=== PATIENT | male | born 1960 | race Caucasian/White ===

== ENCOUNTER 2017-12-22 16:56 | Observation (INO) ==
[2017-12-22] MEDS ORDERED: *HR* HYDROmorphone (PF) 1 MG/ML SYRINGE IM ONE (17:25)
[2017-12-22] MEDS ORDERED: Ondansetron ODT 4 MG TAB.RAPDIS SL ONE (17:26)
--- NOTE | 2017-12-22 18:04 | Emergency Department Note ---
Disposition Clinical Impression: Lumbar strain Qualifiers: Encounter type: initial encounter Qualified Code(s): S39.012A - Strain of muscle, fascia and tendon of lower back, initial encounter Disposition: Admitted As Inpatient Condition: Good Back Pain HPI - General Chief Complaint: ED Back Pain/Injury Stated Complaint: back pain Source: patient Mode of arrival: ambulatory Limitations: no limitations Nursing Notes Reviewed: Yes Vital Signs Reviewed: Yes - History of Present Illness HPI Narrative: has had back pain for the last 10 days or so. similar problems in the past but it's always gotten better in a few days. Has continued to be active in the week and a helf, but will lift or weed the garden and it flares back up again. Today lifted lawnmower into the trunk and push mowed a yard but the pain got much worse. complains of spasm in his back and is unable to bend or twist. No uirnary symptoms, no trauma other than lifting or straining. no falls or blows to the back. no leg pain or numbness or weakness, no difficulty with bowel or bladder control. No fever or IV drug use Pt Subjective Complaint: back pain Onset (ago): day(s) (10) Location: lumbar spine Pain Severity: severe Quality: dull, stabbing, other (feels like back "locks up") Radiation: none Improves with: immobilization Worsens with: movement Context: while lifting, turning/twisting - Related Data Home Medications Medication Instructions Recorded Confirmed Multivitamin-Min/Iron/FA/Vit K 12/22/17 [Multi-Day Plus Minerals Tablet] Saw/Vit E/Sod Annemarie/Lyc/Beta/Pyg 12/22/17 [Prostate Health Caplet] Previous Rx's Medication Instructions Recorded Cyclobenzaprine [Flexeril] 10 mg PO TID PRN #30 tablet 12/22/17 HYDROcodone/Acet 5/325 mg [[place] 1 tab PO Q4H PRN 3 Days #6 tab 12/22/17 5-325 mg] Naproxen [Naprosyn] 500 mg PO BID #20 tablet 12/22/17 Allergies Allergy/AdvReac Type Severity Reaction Status Date / Time No Known Allergies Allergy Verified 12/22/17 17:08 All systems ED: reviewed and negative except as stated. Past Medical History - Past Medical History Medical history: Reports: other Psychiatric history: Reports: no psych history - Social History Smoking Status: Current every day smoker Smokeless Tobacco Status: No Alcohol use: Reports: none Drug use: Reports: none Physical Exam - General Limitations: no limitations General appearance: alert, other (seems relatively comfortable at rest but severe pain with movement of his back) - Head Head exam: atraumatic, normocephalic - Eye Eye exam: Present: normal appearance - ENT ENT exam: normal exam, mucous membranes moist - Neck Neck exam: Present: normal inspection, full ROM - Chest Chest inspection: Present: normal inspection, symmetric chest wall rise - Respiratory Respiratory exam: Present: normal lung sounds bilaterally - Cardiovascular Cardiovascular exam: Present: regular rate, normal rhythm, normal heart sounds - Abdominal Exam Abdominal exam: Present: soft, Non-Tender, normal bowel sounds - Extremities Exam Extremities exam: Present: normal inspection, full ROM. Absent: pedal edema, joint swelling - Expanded Lower Extremity Exam Neurovascular/Tendon exam: Present: normal capillary refill. Absent: pulse deficit - Back Exam Back exam: Present: other (very tender to palpation over lumbar spine, no deformity or step off. Has palpable spasm with movement) - Neurological Exam Neurological exam: Present: alert, oriented X3, CN II-XII intact, reflexes normal (at knees and ankles bilaterally). Absent: motor sensory deficit - Psychiatric Psychiatric exam: Present: normal affect, normal mood - Skin Skin exam: Present: warm, dry, normal color Course - Reevaluation(s) Reevaluation #1: despite multiple doses of analgesics and valium, I was unalbe to control his pain enough that he could sit up and leave. I have discussed with Dr. Sands and he will be admitted to observation for pain control. there are no signs of radiculopathy or cauda equina syndrome Vital Signs Temperature 98.2 F 12/22/17 17:02 Pulse Rate 92 12/22/17 17:02 Respiratory Rate 18 12/22/17 17:02 Blood Pressure 164/74 12/22/17 17:02 O2 Sat by Pulse Oximetry 99 12/22/17 17:02 Temperature 98.0 F 12/22/17 23:20 Pulse Rate 74 12/22/17 23:20 Respiratory Rate 17 12/22/17 23:20 Blood Pressure 136/80 12/22/17 23:20 O2 Sat by Pulse Oximetry 95 12/22/17 23:20 Oxygen Delivery Oxygen Delivery Room Air Back Pain/Injury - Lab Data Result diagrams: 12/22/17 20:35 12/22/17 20:35 Lab Results 12/22/17 12/22/17 12/22/17 Range/Units 20:35 20:35 21:02 WBC 10.5 (4.3-11.1) K/mcL RBC 5.22 (4.19-5.50) M/mcL Hgb 16.2 (12.9-16.9) g/dL Hct 46.1 (37.5-50.1) % MCV 88.3 (83.0-100.0) fL MCH 31.0 (28.0-33.3) pg MCHC 35.1 (31.6-35.5) g/dL RDW 11.9 (11.5-14.5) % Plt Count 329 (140-400) K/mcL MPV 9.2 L (9.4-12.4) fL Immature Gran % 0.5 (0-4) % Seg Neutrophils % 76.4 % Lymphocytes % 14.4 % Monocytes % 7.8 % Eosinophils % 0.1 % Basophils % 0.8 % Neutrophils # 8.0 (1.6-8.9) K/mcL Lymphocytes # 1.5 (0.6-4.6) K/mcL Monocytes # 0.8 (0.0-1.3) K/mcL Eosinophils # 0.0 (0.0-0.6) K/mcL Basophils # 0.1 (0.0-0.2) K/mcL Sodium 136 (136-145) mEq/L Potassium 4.1 (3.5-5.1) mEq/L Chloride 101 (98-107) mEq/L Carbon Dioxide 24 (23-29) mEq/L BUN 16 (6-20) mg/dL Creatinine 0.99 (0.70-1.30) mg/dL Est GFR ( Amer) > 60 (> 60) Est GFR (Non-Af Amer) > 60 (> 60) BUN/Creatinine Ratio 16 (6-26) Glucose 114 H (70-105) mg/dL Calculated Osmolality 284 (280-300) Calcium 9.7 (8.6-10.3) mg/dL Total Bilirubin 0.5 (0.3-1.0) mg/dL Direct Bilirubin 0.1 (0.0-0.2) mg/dL Indirect Bilirubin 0.4 (0.0-1.2) mg/dL AST 31 (13-39) Units/L ALT 57 H (7-52) Units/L Alkaline Phosphatase 42 (34-104) Units/L Serum Total Protein 7.9 (6.4-8.9) g/dL Albumin 4.7 (3.5-5.7) g/dL Globulin 3.2 (2.4-3.5) g/dL Albumin/Globulin Ratio 1.5 (1.1-2.2) Amylase 54 (29-103) Units/L Lipase 18 (11-82) Units/L Urine Color Yellow (Yellow) Urine Clarity Clear (Clear) Urine pH 6.0 (5.0-8.0) pH Units Ur Specific [place] >= 1.030 H (1.010-1.025) Urine Protein 30 H (Neg-Trace) mg/dL Urine Glucose (UA) Normal (Normal) mg/dL Urine Ketones Negative (Negative) mg/dL Urine Blood Trace-intact H (Negative) Urine Nitrite Negative (Negative) Urine Bilirubin Negative (Negative) Urine Urobilinogen Normal (Normal) mg/dL Ur Leukocyte Esterase Trace H (Negative) Urine Microscopic RBC 0-3 (0-3) per hpf Urine Microscopic WBC 5-15 H (0-3) per hpf Ur Squamous Epith Cells Few (None-Few) per lpf Urine Bacteria Moderate H (None-Few) per hpf Urine Sperm Present Ur Culture Indicated? YES A (NO)
[2017-12-22] MEDS ORDERED: *HR* HYDROmorphone 2 MG/ML SYRINGE IM ONE (18:32)
[2017-12-22] MEDS ORDERED: diazePAM 5 MG TABLET PO ONE (19:15)
[2017-12-22] MEDS ORDERED: *HR* OxyCODONE/APAP 10/325 TABLET PO ONE (20:07)
[2017-12-22 20:50] LABS: Basophils # 0.1 K/mcL (0.0-0.2); Basophils % 0.8 %; Eosinophils % 0.1 %; Hematocrit 46.1 % (37.5-50.1); Hemoglobin 16.2 g/dL (12.9-16.9); Immature Granulocytes % 0.5 % (0-4); Lymphocytes # 1.5 K/mcL (0.6-4.6); Lymphocytes % 14.4 %; Mean Corpuscular HGB Conc 35.1 g/dL (31.6-35.5); Mean Corpuscular Volume 88.3 fL (83.0-100.0); Mean Platelet Volume 9.2 fL (9.4-12.4); Monocytes # 0.8 K/mcL (0.0-1.3); Monocytes % 7.8 %; Platelet Count 329 K/mcL (140-400); Red Blood Count 5.22 M/mcL (4.19-5.50); Red Cell Distribution Width 11.9 % (11.5-14.5); Segmented Neutrophils % 76.4 %
[2017-12-22 21:06] LABS: Bilirubin,Urine Negative (Negative); Blood,Urine Trace-intact (Negative); Clarity,Urine Clear (Clear); Color,Urine Yellow (Yellow); Glucose,Urine (UA) Normal (Normal); Ketones,Urine Negative (Negative); Leukocyte Esterase,Urine Trace (Negative); Nitrite,Urine Negative (Negative); Protein,Urine 30 mg/dL (Neg-Trace); Specific Gravity,Urine >= 1.030 (1.010-1.025); Urobilinogen,Urine Normal (Normal)
[2017-12-22 21:12] LABS: Alanine Aminotransferase 57 Units/L (7-52); Albumin 4.7 g/dL (3.5-5.7); Albumin/Globulin Ratio 1.5 (1.1-2.2); Alkaline Phosphatase 42 Units/L (34-104); Amylase 54 Units/L (29-103); Aspartate Amino Transferase 31 Units/L (13-39); BUN/Creatinine Ratio 16 (6-26); Bilirubin,Direct 0.1 mg/dL (0.0-0.2); Bilirubin,Indirect 0.4 mg/dL (0.0-1.2); Bilirubin,Total 0.5 mg/dL (0.3-1.0); Blood Urea Nitrogen 16 mg/dL (6-20); Calcium 9.7 mg/dL (8.6-10.3); Carbon Dioxide 24 mEq/L (23-29); Chloride 101 mEq/L (98-107); Globulin 3.2 g/dL (2.4-3.5); Glucose 114 mg/dL (70-105); Lipase 18 Units/L (11-82); Osmolality,Calculated 284 (280-300); Potassium 4.1 mEq/L (3.5-5.1); Sodium 136 mEq/L (136-145); Total Protein 7.9 g/dL (6.4-8.9); eGFR For African Americans > 60 (> 60); eGFR For Non-African Americans > 60 (> 60)
[2017-12-22 21:31] LABS: Bacteria,Urine Moderate per hpf (None-Few); RBC,Urine 0-3 per hpf (0-3); Sperm,Urine Present; Squamous Epithelial Cell,Urine Few per lpf (None-Few)
[2017-12-23] MEDS ORDERED: Naloxone 0.4 MG/ML INJ IVP PRN (01:04)
[2017-12-23] MEDS ORDERED: *HR* HYDROcodone/Acet 5/325 mg TABLET PO PRN (01:04)
[2017-12-23] MEDS ORDERED: *HR* OxyCODONE Immed Rel 5 MG TABLET PO PRN (01:04)
[2017-12-23] MEDS ORDERED: *HR* Enoxaparin 40 MG/0.4 ML SYRINGE SQ SCH (07:00)
[2017-12-23 07:35] VITALS: BP 119/74
[2017-12-23] MEDS ORDERED: Ibuprofen 800 MG TABLET PO SCH (08:00)
--- NOTE | 2017-12-23 08:20 | Internal Med History&Physical ---
Date of Encounter: 12/23/17 Time of Encounter: 08:19 Assessment and Plan (1) Lumbar strain Status: Acute He was unable to be discharged from the emergency room left leg due to pain he was placed in observation status due to the morphine short and she was unable to receive any IV pain medication he did receive by mouth pain medication. Will have physical therapy get him up walk see how he does do ice NSAIDs give him some Solu-Medrol see if this helps alleviate his pain will have him get an outpatient referral to see Dr. Loco. X-rays did not show any acute disease but degenerative changes. Qualifiers: Qualified Code(s): S39.012A - Strain of muscle, fascia and tendon of lower back, initial encounter Internal Medicine - H&P: HPI Chief complaint: back pain cannot move Admitted From: Home Plans for Post Hospital Care: Home History of present illness: Mr. Rhodes is a 57 year old male Who does not have any prior history of back pain. Presented to the ER with a 1- 1/2 week history of progressive worse back pain. There was no radiation of his pain. It was in his lumbar spine. It did get worse 2 days ago when he was pulling weeds and then yesterday he lifted a lawnmower after which he could not straighten up and had severe back pain. There is no radiation to his lower extremities there was no weakness of the sore extremities there was no paresthesias. He did not have any incontinence he did not have any fever he does not have any back injury. He came into the emergency room is given Dilaudid IV valium HE HAD X-RAYS THAT SHOW DEGENERATIVE DISEASE. HE WAS UNABLE TO GET UP AND GO HOME. He could not move. Emergency room doctor put him in is observation. He could not have IV morphine due to the shortage it was changed to pharmaceutical into the oxycodone. Physical therapy saw him got him him moved him he was in significant pain but he was able to ambulate with the help of his significant other. He had already had medications: To the pharmacy and his significant other had scripts from the emergency room last night overheated artifact of hydrocodone and Flexeril and Naprosyn. Past Med Surg Social Fam HX - Past Medical History Medical history: other (spermatolcele, hypospadius) Additional medical history: BPH Psychiatric history: no psych history - Past Surgical History Surgical History: herniorrhaphy (left inguinal), orthopedic, other (left 2nd digit tendon rpeair age 17 or 18) Additional surgical history: Hernia Repair - Social History Smoking Status: Current every day smoker Smokeless Tobacco Status: No Alcohol use: none Drug use: none - Family History Mother Living Status: Hx Family Cardiac Disorders: Yes (HTN) Hx Family Endocrine Disorder: Yes (DM) Father Living Status: Hx Family Neurologic Disorders: Yes (Dementia) Internal Medicine - H&P: Meds Saw/Vit E/Sod Annemarie/Lyc/Beta/Pyg [Prostate Health Caplet] 1 tab PO DAILY 12/22/17 [History] Cyclobenzaprine [Flexeril] 10 mg PO TID PRN #1 tablet 12/23/17 [Rx] HYDROcodone/Acet 5/325 mg [[place] 5-325 mg] 1 tab PO Q4H PRN 6 Days #1 tab [Rx] Naproxen [Naprosyn] 500 mg PO BID #1 tablet 12/23/17 [Rx] predniSONE [Prednisone] 60 mg PO DAILY 5 Days #1 tab.ds.pk 12/23/17 [Rx] 3 Allergy/AdvReac Type Severity Reaction Status Date / Time No Known Allergies Allergy Verified 12/22/17 17:08 All Systems PM: A 10-system review of systems was performed and is negative for pertinent findings except as documented above in the HPI. - Constitutional Constitutional: no chills, no fever(s), no falls - EENT Eyes: no change in vision - Cardiovascular Cardiovascular ROS IM: no chest pain, no dyspnea, no palpitations, no syncope - Respiratory Respiratory: cough (occ), no dyspnea - Gastrointestinal Gastrointestinal: other (incontinence), no constipation, no diarrhea, no hematochezia, no loose stools, no melena, no nausea, no vomiting - Genitourinary Genitourinary ROS male: no hematuria, no urinary incontinence - Musculoskeletal Musculoskeletal ROS IM: limited range of motion (due to pain), muscle cramps, stiffness, no muscle weakness, no numbness - Integumentary Integumentary IM: pruritus (only in winter with dry skin), no rash - Neurological Neurological ROS: no frequent falls, no loss of vision, no numbness, no paresthesias, no radicular pain - Endocrine Endocrine IM: no fatigue - Constitutional Vitals: Temp Pulse Resp BP Pulse Ox 98.5 F 87 18 119/74 93 12/23/17 07:33 12/23/17 07:33 12/23/17 07:33 12/23/17 07:33 12/23/17 07:33 General appearance: Present: A&O X 3, no acute distress (unless he moves his back then pain and discomfort) - Head Head exam: Present: atraumatic, normocephalic - Neck Neck exam general surgery: Present: normal inspection, supple, trachea midline. Absent: lymphadenopathy - Respiratory Respiratory exam: Present: CTAB - Cardiovascular Cardiovascular exam: Present: RRR, +S1, +S2. Absent: systolic murmur - GI/Abdominal GI/Abdominal exam: Present: normal bowel sounds, soft, no peritoneal signs. Absent: distended, guarding, mass, tenderness - Extremities Exam Extremities exam: Present: normal capillary refill. Absent: pedal edema, tenderness - Back Exam Back exam: Present: muscle spasm. Absent: full ROM (lift quads caused lumbar spasm) - Neurological Exam Neurological exam: Present: CN II-XII intact. Absent: speech deficit - Skin Skin exam: Present: dry, warm. Absent: rash Internal Med - H&P Results - Labs CBC & Chem 7: 12/22/17 20:35 12/22/17 20:35 - VTE Documentation of Mechanical Device: Graduated compression elastic hosiery
[2017-12-23] MEDS ORDERED: methylPREDNISolone 125 MG/2 ML VIAL IVP ONE (08:31)
--- NOTE | 2017-12-23 08:37 | Discharge Summary ---
Date of Encounter: 12/23/17 Time of Encounter: 08:20 - Discharge Diagnosis (1) Lumbar strain Priority: Primary Status: Acute Comments: He was admitted overnight for [facility] for lumbar pain. He had x-rays associated degenerative changes he was neurologically intact his exam was benign except for he had a lot of muscle spasm with range of motion of his back and lifting up his quad. He was given Solu-Medrol oxycodone IV Valium and Dilaudid help alleviate his pain we did consult physical therapy they came and saw him on gave him pointers on how to get in and out of bed he was able to get in and out of bed with the assistance of his significant other he was discharged home in stable condition he has no plan to follow-up with Dr. Smith on the back pain. Qualifiers: Encounter type: initial encounter Qualified Code(s): S39.012A - Strain of muscle, fascia and tendon of lower back, initial encounter Hospital course: Mr. Rhodes is a 57 year old male Who had severe lumbar back pain. He was given IV Dilaudid Valium by mouth oxycodone and Flexeril. He had physical therapy consult he is scheduled to see Dr. Fleming is an outpatient for follow-up. Discharge discussed with: family - Time Spent with Patient Total time spent providing and/or coordinating discharge services: - Discharge Medications Prescriptions: Cyclobenzaprine [Flexeril] 10 mg PO TID PRN #1 tablet PRN Reason: Spasms HYDROcodone/Acet 5/325 mg [[place] 5-325 mg] 1 tab PO Q4H PRN 6 Days #1 tab PRN Reason: Pain Naproxen [Naprosyn] 500 mg PO BID #1 tablet predniSONE [Prednisone] 60 mg PO DAILY 5 Days #1 tab.ds.pk Home Medications: Saw/Vit E/Sod Annemarie/Lyc/Beta/Pyg [Prostate Health Caplet] 1 tab PO DAILY 12/22/17 [History] Cyclobenzaprine [Flexeril] 10 mg PO TID PRN #1 tablet 12/23/17 [Rx] HYDROcodone/Acet 5/325 mg [[place] 5-325 mg] 1 tab PO Q4H PRN 6 Days #1 tab [Rx] Naproxen [Naprosyn] 500 mg PO BID #1 tablet 12/23/17 [Rx] predniSONE [Prednisone] 60 mg PO DAILY 5 Days #1 tab.ds.pk 12/23/17 [Rx] Allergies/Adverse Reactions: 3 Allergy/AdvReac Type Severity Reaction Status Date / Time No Known Allergies Allergy Verified 12/22/17 17:08 Date of admission: 12/22/17 23:03 Primary care physician: Mary Bernardo MD - Constitutional Vitals: Temp Pulse Resp BP Pulse Ox 98.5 F 87 18 119/74 93 12/23/17 07:33 12/23/17 07:33 12/23/17 07:33 12/23/17 07:33 12/23/17 07:33 General appearance: Present: mild distress (With moving), A&O X 3 - Head Head exam: Present: atraumatic, normocephalic - Neck Neck exam general surgery: Present: supple, trachea midline. Absent: lymphadenopathy - Cardiovascular Cardiovascular exam: Present: +S1, +S2. Absent: RRR, systolic murmur - GI/Abdominal GI/Abdominal exam: Present: normal bowel sounds, soft, no peritoneal signs. Absent: guarding, tenderness - Extremities Exam Extremities exam: Present: warm. Absent: pedal edema - Back Exam Back exam: Present: muscle spasm - Neurological Exam Neurological exam: Present: CN II-XII intact - Skin Skin exam: Present: dry, warm. Absent: rash - Patient Status Disposition: Home, Self-Care Condition: Good Overall status at discharge: patient is not back to baseline - Discharge Instructions Follow Up With: Mary Bernardo MD [Primary Care Provider] - Reid Loco MD [Partnered Physician] - 12/24/17 8:45 am (at [facility] ) - VTE Documentation of Mechanical Device: Graduated compression elastic hosiery
[2017-12-23] MEDS ORDERED: PROSTATE HEALTH PO SCH (09:00)
== END 2017-12-23 11:56 | disposition home or self-care (01) ==
LOC: INPGRE 16:56 → EMEROOGRE 16:56 → INPGRE 23:10
PROVIDERS: ADMIT Emergency Medicine; ATTEND Family Medicine